=== PATIENT | female | born 2000 | race Two or more races ===

== ENCOUNTER → 2020-04-21 | Emergency (ER) | payer MEDICAID ==
[~2020-04-21] VITALS: Ht 160 cm; Wt 62.1 kg
[~2020-04-21] MED LIST: MORPHINE SULF INJ 2 MG/ML SYRINGE 1ML IV ONE; ONDANSETRON HCL 4 MG/2 ML VIAL IV ONE; SODIUM CHLORIDE 0.9% 1,000 ML IV ONE
[2020-04-21 09:22] LABS: Basophils # (auto) 0 10 ^3/uL (0-0.2); Basophils % (auto) 0.2 % (0.0-2.0); Eosinophils # (auto) 0 10 ^3/uL (0-0.8); Eosinophils % (auto) 0.2 % (0.0-7.0); Hematocrit 35.7 % (36.0-46.0); Hemoglobin 12.5 g/dL (12.2-16.2); Lymphocytes # (auto) 0.9 10 ^3/uL (0.4-5.4); Lymphocytes % (auto) 7.8 % (10.0-50.0); Mean Corpuscular Hemoglobin 29.9 pg (28.0-32.0); Mean Corpuscular Volume 85.6 fL (80.0-100.0); Monocytes # (auto) 0.4 10 ^3/uL (0-1.3); Monocytes % (auto) 3.5 % (0.0-12.0); Neutrophils # (auto) 10.6 10 ^3/uL (1.6-8.6); Neutrophils % (auto) 88.3 % (37.0-80.0); Nucleated Red Blood Cells % 0.1 %; Platelet Count (auto) 211 10^3/uL (140-450); Red Blood Cells 4.17 10^6/uL (4.0-5.20); Red Cell Distribution Width 14.8 % (11.8-14.3)
[2020-04-21 09:46] LABS: Calcium 8.9 mg/dL (8.5-10.1); Potassium 3.5 mmol/L (3.5-5.1)
[2020-04-21 09:49] LABS: BUN/Creatinine Ratio 10.7; Bilirubin, Total 0.7 mg/dL (0.2-1.0); Total Protein 7.3 g/dL (6.4-8.2)
[2020-04-21 10:26] LABS: Urine Bacteria MANY /hpf (None Seen); Urine Blood 1+ /uL (Negative); Urine Mucus FEW (None Seen); Urine Specific Gravity 1.013 (1.001-1.035); Urine WBC 357 /hpf (0 - 5); Urine WBC Clumps PRESENT /hpf (None Seen)
[2020-04-21 12:02] VITALS: BP 97/53
== END | disposition home or self-care (01) ==
LOC: ER 08:40
DX: O23.41 Unspecified infection of urinary tract in pregnancy, first trimester (principal); E86.0 Dehydration; Z3A.01 Less than 8 weeks gestation of pregnancy
CPT/HCPCS: 36415; 76805; 80053; 81001; 81025; 84702; 85025; 96361; 96374; 96375; 99284; J2270; J2405

== ENCOUNTER 2020-09-15 20:08 | Observation (INO) | payer MEDICAID ==
[~2020-09-15] VITALS: Ht 157.5 cm; Wt 68.0 kg
[2020-09-15] MEDS ORDERED: ACETAMINOPHEN 500 MG TAB PO ONE (21:36)
== END 2020-09-15 22:47 | disposition home or self-care (01) ==
LOC: LDRP 20:08
PROVIDERS: ADMIT Obstetrics & Gynecology; ATTEND Obstetrics & Gynecology
DX: O99.891 Other specified diseases and conditions complicating pregnancy (principal); M54.5 Low back pain; O34.63 Maternal care for abnormality of vagina, third trimester; N89.8 Other specified noninflammatory disorders of vagina; O26.893 Other specified pregnancy related conditions, third trimester; R11.0 Nausea; R06.02 Shortness of breath; Z3A.37 37 weeks gestation of pregnancy; Z79.899 Other long term (current) drug therapy
CPT/HCPCS: 59025; 81002; G0378

== ENCOUNTER 2020-09-19 01:19 | Inpatient (IN) | payer MEDICAID ==
[~2020-09-19] VITALS: Ht 157.5 cm; Wt 68.0 kg
[2020-09-19] MEDS ORDERED: LACT. RINGERS/OXYTOCIN 20UNITS 1,000 ML IV ONE (02:00)
[2020-09-19] MEDS ORDERED: TERBUTALINE SULFATE 1 MG/ML 1ML VIAL SC ONE (02:00)
[2020-09-19] MEDS ORDERED: PROMETHAZINE HCL 25 MG/ML 1ML IV PRN (02:00)
[2020-09-19] MEDS ORDERED: PHISODERM TOP SOLN 240ML BTL TOP PRN (02:00)
[2020-09-19] MEDS ORDERED: BUTORPHANOL TARTRATE 2 MG/1 ML VIAL IV PRN ×2 (02:00)
[2020-09-19] MEDS ORDERED: DERMOPLAST 60ML BOTTLE TOP PRN (02:00)
[2020-09-19] MEDS ORDERED: LIDOCAINE 2%HCL (LOCAL ANESTH.) INJ 20ML MDV IJ ONE (02:00)
[2020-09-19] MEDS ORDERED: WITCH HAZEL-GLYCERIN PAD TOP PRN (02:00)
[2020-09-19] MEDS ORDERED: LACT. RINGERS/OXYTOCIN 20UNITS 1,000 ML IV SCH (02:00)
[2020-09-19 02:32] LABS: Alcohol, Urine < 3.0 mg/dL (0-10); Amphetamine Screen, Urine NEGATIVE (NEGATIVE); Barbiturate Scree,Urine NEGATIVE (NEGATIVE); Benzodiazephine Screen, Urine NEGATIVE (NEGATIVE); Cannabinoid Screen, Urine NEGATIVE (NEGATIVE); Cocaine Screen, Urine NEGATIVE (NEGATIVE); Opiate Scree,Urine NEGATIVE (NEGATIVE); Phencyclidine Screen, Urine NEGATIVE (NEGATIVE)
[2020-09-19 02:36] LABS: Basophils # (auto) 0 10 ^3/uL (0-0.2); Basophils % (auto) 0.4 % (0.0-2.0); Eosinophils # (auto) 0.1 10 ^3/uL (0-0.8); Eosinophils % (auto) 0.8 % (0.0-7.0); Hematocrit 30.2 % (36.0-46.0); Hemoglobin 10.1 g/dL (12.2-16.2); Lymphocytes # (auto) 2.2 10 ^3/uL (0.4-5.4); Lymphocytes % (auto) 23.8 % (10.0-50.0); Mean Corpuscular Hemoglobin 27.5 pg (28.0-32.0); Mean Corpuscular Hgb Conc. 33.4 g/dL (32.0-36.0); Mean Corpuscular Volume 82.3 fL (80.0-100.0); Monocytes # (auto) 0.4 10 ^3/uL (0-1.3); Monocytes % (auto) 4.2 % (0.0-12.0); Neutrophils # (auto) 6.7 10 ^3/uL (1.6-8.6); Neutrophils % (auto) 70.8 % (37.0-80.0); Nucleated Red Blood Cells % 0.1 %; Platelet Count (auto) 266 10^3/uL (140-450); Red Blood Cells 3.67 10^6/uL (4.0-5.20); Red Cell Distribution Width 16.7 % (11.8-14.3); White Blood Cell 9.4 10^3/uL (4.4-10.8)
[2020-09-19 02:43] LABS: Urine Bacteria FEW /hpf (None Seen); Urine Blood Negative /uL (Negative); Urine Specific Gravity 1.006 (1.001-1.035); Urine WBC 2 /hpf (0 - 5)
[2020-09-19 02:53] LABS: Albumin 2.5 g/dL (3.4-5.0); Calcium 8.1 mg/dL (8.5-10.1); Potassium 3.7 mmol/L (3.5-5.1)
[2020-09-19 02:54] LABS: INR 0.95 (0.9-1.15); Partial Thromboplastin Time 27.3 sec (23.0-31.2)
[2020-09-19 02:55] LABS: BUN/Creatinine Ratio 12.3
[2020-09-19 02:58] LABS: Bilirubin, Total 0.4 mg/dL (0.2-1.0); Total Protein 6.7 g/dL (6.4-8.2)
[2020-09-19] MEDS ORDERED: METHYLERGONOVINE MALEATE 0.2 MG/ML AMP IM ONE (05:00)
[2020-09-19] MEDS ORDERED: miSOPROStol 50 MCG per PRE-CUT 1/2 TAB PO PRN (06:00)
[2020-09-19] MEDS: LACTATED RINGER'S 1,000 ML IV SCH ×2 (06:35→10:00)
[2020-09-19] MEDS ORDERED: LACTATED RINGER'S 1,000 ML IV ONE (08:30)
[2020-09-19] MEDS ORDERED: ePHEDrine SULFATE 50 MG/ML AMP IV ONE (08:30)
[2020-09-19] MEDS ORDERED: ROPIVACAINE HCL 200 ML EPI SCH (08:30)
[2020-09-19] MEDS ORDERED: ROPIVACAINE HCL 400mg/200ml BAG (2mg/ml) ONE (08:37)
[2020-09-19] MEDS ORDERED: ePHEDrine SULFATE 50 MG/ML AMP ONE (08:38)
[2020-09-19] MEDS: IBUPROFEN 600 MG TAB PO PRN (13:47)
[2020-09-19 15:35] VITALS: BP 105/62
[2020-09-19 19:00] VITALS: BP 109/60
[2020-09-19 23:25] VITALS: BP 101/65
[2020-09-20] MEDS: IBUPROFEN 600 MG TAB PO PRN (00:30)
[2020-09-20 05:06] LABS: RPR Non Reactive (Non Reactive)
[2020-09-20 07:15] VITALS: BP 107/58
[2020-09-20 11:26] VITALS: BP 115/75
== END 2020-09-20 13:05 | disposition home or self-care (01) | DRG 560 ==
LOC: LDRP 01:19 → OBSVTOIN 01:19 → LDRP 02:18
PROVIDERS: ADMIT Obstetrics & Gynecology; ATTEND Obstetrics & Gynecology
PROC: 10E0XZZ Delivery of Products of Conception, External Approach (ICD-10-PCS; principal; 2020-09-19)
PROC: 3E0R3BZ Introduction of Anesthetic Agent into Spinal Canal, Percutaneous Approach (ICD-10-PCS; 2020-09-19)
PROC: 00HU33Z Insertion of Infusion Device into Spinal Canal, Percutaneous Approach (ICD-10-PCS; 2020-09-19)
PROC: 0UQGXZZ Repair Vagina, External Approach (ICD-10-PCS; 2020-09-19)
DX: O69.81X0 Labor and delivery complicated by cord around neck, without compression, not applicable or unspecified (principal); O71.4 Obstetric high vaginal laceration alone; Z3A.38 38 weeks gestation of pregnancy; Z37.0 Single live birth; Z20.822 Contact with and (suspected) exposure to COVID-19
CPT/HCPCS: 36415; 59025; 59409; 80053; 80307; 81001; 81002; 84112; 85025; 85610; 85730; 86592; 86850; 86900; 86901; 87426; 94760; 96360; 96361; 96365; 96366; G0378; J2590

== ENCOUNTER 2025-05-11 20:17 | Emergency (ER) | payer MEDICAID ==
[~2025-05-11] VITALS: Ht 157.5 cm; Wt 72.1 kg
--- NOTE | 2025-05-11 21:09 | ED.PDOC ---
History of Present Illness HPI Comments 25-year-old presented to the ER with a chief complaint of nausea and vomiting for the past 2 days. Patient reports that she had a positive urinary test yesterday, and that this is an unplanned apparently. For the past 2 days, she has been unable to keep solids or liquid food down, has been throwing up more than 5 episodes in a day, nonbloody, but denies chest pain/shortness of breaths/diarrhea or constipation at this time. Denies fever or chills. Does not report was using drinking alcohol and smoking, and not using any multivitamins or folic acid supplementation. Past medical history: Denies Home medication: Denies Patient seen and examined in ER. Vitally stable, normotensive, not tachycardia. Abdomen soft, nontender. Chief Complaint: Nausea/Vomiting Time Seen by MD: 20:32 Primary Care Provider: jannie Reviewed Notes: Nurses Notes Allergies: Coded Allergies: NO KNOWN ALLERGIES (Unverified , 04/21/20) Home Meds No Active Prescriptions or Reported Meds Information Source: Patient Mode of Arrival: Ambulatory Past Medical History PAST MEDICAL HISTORY: Denies Surgical History: Denies all surgeries LIVE IN COMPANION History: No Pertinent LIVE IN COMPANION History Social History Smoker: Non-Smoker Alcohol: Denies ETOH Use Drugs: Denies Drug Use Constitutional: denies: chills, diaphoresis, fatigue, fever, malaise, sweats, weakness, others EENTM: denies: blurred vision, double vision, ear bleeding, ear discharge, ear drainage, ear pain, ear ringing, eye pain, eye redness, hearing loss, mouth pain, mouth swelling, nasal discharge, nose bleeding, nose congestion, nose pain, photophobia, tearing, throat pain, throat swelling, voice changes, others Respiratory: denies: cough, hemoptysis, orthopnea, SOB at rest, shortness of breath, SOB with excertion, stridor, wheezing, others Cardiovascular: denies: chest pain, dizzy spells, diaphoresis, Dyspnea on exertion, edema, irregular heart beat, left arm pain, lightheadedness, palpitations, PND, syncope, others Gastrointestinal: reports: nausea, poor fluid intake, vomiting Genitourinary: denies: abnormal vagina bleeding, burning, dyspareunia, dysuria, flank pain, frequency, hematuria, incontinence, pain, , vagina discharge, urgency, others Neurological: denies: dizziness, fainting, headache, left sided numbness, left sided weakness, numbness, paresthesia, pre-existing deficit, right sided numbness, right sided weakness, seizure, speech problems, tingling, tremors, weakness, others Musculoskeletal: denies: back pain, gout, joint pain, joint swelling, muscle pain, muscle stiffness, neck pain, others Integumetry: denies: bruises, change in color, change in hair/nails, dryness, laceration, lesions, lumps, rash, wounds, others Allergic/Immunocompromised: denies: Difficulty Healing, Frequent Infections, Hives, Itching, others Hematologic/Lymphatic: denies: anemia, blood clots, easy bleeding, easy bruis ing, swollen glands, others Endocrine: denies: excessive hunger, excessive sweating, excessive thirst, exc essive urination, flushing, intolerance to cold, intolerance to heat, unexplained weight gain, unexplained weight loss, others Psychiatric: denies: anxiety, bipolar disorder, depression, hopeless, panic disorder, schizophrenia, sleepless, suicidal, others Physical Exam General Appearance: No Apparent Distress, Normal HEENT: NOT DONE Neck: NOT DONE Respiratory: No Accessory Muscle Use, No Respiratory Distress, Normal Breath Sounds Cardiovascular: No Edema, Regular Rate/Rhythm Breast Exam: Deferred Gastrointestinal: No Organomegaly, Non Tender, No Pulsatile Mass, Normal Bowel Sounds, Soft Genitalia: Deferred Pelvic: Deferred Rectal: Deferred Extremities: No calf tenderness, Normal capillary refill, Normal inspection, Normal range of motion, Non-tender, No pedal edema Neurologic: NOT DONE Cerebellar Function: NOT DONE Reflexes: NOT DONE Skin: NOT DONE Lymphatic: NOT DONE Was a procedure done? Was a procedure done?: No Differential Dx Considerations may include: Hyperemesis gravidarum/gastroenteritis/UTI/food poisoning X-Ray, Labs, Meds, VS Vital Signs Date Time Temp Pulse Resp B/P (MAP) Pulse Ox O2 Delivery O2 Flow Rate FiO2 05/12/25 00:10 98.3 64 14 113/84 (94) 99 98.3 05/11/25 21:54 67 16 97 Room Air* 0 21 05/11/25 21:53 98.4 64 18 131/65 (87) 97 98.4 05/11/25 20:20 97.7 75 20 135/84 98 97.7 Lab Test 05/11/25 21:42 Range/Units White Blood Count 13.5 H 4.4-10.8 10^3/uL Red Blood Count 4.66 4.0-5.20 10^6/uL Hemoglobin 14.4 12.2-16.2 g/dL Hematocrit 41.6 36.0-46.0 % Mean Corpuscular Volume 89.2 80.0-100.0 fL Mean Corpuscular Hemoglobin 30.9 28.0-32.0 pg Mean Corpuscular Hemoglobin Concent 34.7 32.0-36.0 g/dL Red Cell Distribution Width 14.0 11.8-14.3 % Platelet Count 312 140-450 10^3/uL Mean Platelet Volume 8.6 6.9-10.8 fL Neutrophils (%) (Auto) 79.0 37.0-80.0 % Lymphocytes (%) (Auto) 15.7 10.0-50.0 % Monocytes (%) (Auto) 4.6 0.0-12.0 % Eosinophils (%) (Auto) 0.3 0.0-7.0 % Basophils (%) (Auto) 0.4 0.0-2.0 % Neutrophils # (Auto) 10.7 H 1.6-8.6 10 ^3/uL Lymphocytes # (Auto) 2.1 0.4-5.4 10 ^3/uL Monocytes # (Auto) 0.6 0-1.3 10 ^3/uL Eosinophils # (Auto) 0 0-0.8 10 ^3/uL Basophils # (Auto) 0.1 0-0.2 10 ^3/uL Nucleated Red Blood Cells 0.1 % Sodium Level 140 136-145 mmol/L Potassium Level 3.6 3.5-5.1 mmol/L Chloride Level 102 98-107 mmol/L Carbon Dioxide Level 26 20-31 mmol/L Anion Gap 12 5-15 Blood Urea Nitrogen 10 9-23 mg/dL Creatinine 0.78 0.550-1.02 mg/dL Glomerular Filtration Rate Calc 107 >90 mL/min BUN/Creatinine Ratio 12.8 10.0-20.0 Serum Glucose 92 74-106 mg/dL Calcium Level 9.8 8.7-10.4 mg/dL Beta HCG, Quantitative 34472.4 H 1.5-4.2 mIU/mL Current Medications Medications (Trade) Dose Ordered Sig/Bernie Route Start Time Stop Time Status Last Admin Pyridoxine HCl (Vitamin B-6 Tablet) 25 mg ONCE ONCE PO 05/11/25 21:15 05/11/25 21:17 DC 05/12/25 00:12 Thiamine HCl 100 mg ONCE ONCE IM 05/11/25 23:30 05/11/25 23:32 DC 05/12/25 00:14 X-Ray, Labs, Meds, VS Comment OBSTETRIC ULTRASOUND PRIOR TO 14 WEEKS CLINICAL INDICATION: N/V, positive urine TECHNIQUE: Multiple grayscale ultrasound images were obtained of the pelvis via transabdominal and transvaginal approach for obstetric evaluation. Limited color Doppler and spectral Doppler acquisitions were also obtained. COMPARISON: US OB TRANS VAGINAL US on DOS: 05/11/25 FINDINGS: Uterus: 9.4 x 7.3 x 6.0 cm. There is a single intrauterine gestational sac is visualized. A pole is visualized measuring 0.21 cm compatible with an estimated gestational age of 5 weeks, 5 days. cardiac activity is present with heart rate of 115 beats per minute. A normal yolk sac is present. Right adnexa: right ovary 1.2 x 1.8 x 2.3 cm. Normal arterial blood flow in the ovary. No right adnexal mass seen. Left adnexa: left ovary 2.1 x 1.0 x 1.8 cm. Normal arterial blood flow in the ovary. No left adnexal mass seen. Left complex cystic lesion likely a hemorrhagic cyst measuring 1.6 cm. Other: None IMPRESSION: 1. Single living intrauterine with an estimated gestational age of 5 weeks, 5 days, corresponding to an estimated date of delivery of 01/06/2026 Images Reviewed?: Images reviewed and evaluated by me Time of 1ST Reevaluation: 01:00 Reevaluation 1ST: Improved (Nausea vomiting improved) Consultation: PCP, nutrition tech Patient Education/Counseling: Diagnosis, Treatment Family Education/Counseling: Diagnosis, Treatment SEPSIS Sepsis Screen Date sepsis recognized/suspect: May 11, 2025 Time Sepsis recognized/suspect: 2024 Recent Procedure: No On Antibiotic Therapy: No Respiratory Rate >20: No Heart Rate >90: No Temp<36 C (96.8 F) or >38.3 C: No SBP <90 or MAP <65 mmHG: No New Acute Mental Status Change: No Is the patient on CPAP, BIPAP,: No Physician Orders Ob Ultrasound Comp Less 14wks (05/11/25 21:02) Ob Trans Vaginal Us (05/11/25 23:31) Folic Acid Tablet (05/12/25 00:45) Vital Signs Date Time Temp Pulse Resp B/P (MAP) Pulse Ox O2 Delivery O2 Flow Rate FiO2 05/12/25 00:10 98.3 64 14 113/84 (94) 99 98.3 05/11/25 21:54 67 16 97 Room Air* 0 21 05/11/25 21:53 98.4 64 18 131/65 (87) 97 98.4 05/11/25 20:20 97.7 75 20 135/84 98 97.7 Laboratory Tests Test 05/11/25 21:42 White Blood Count 13.5 10^3/uL (4.4-10.8) H Medications Medications Dose Ordered Sig/Bernie Route Start Time Stop Time Status Last Admin Dose Admin Pyridoxine HCl 25 mg ONCE ONCE PO 05/11/25 21:15 05/11/25 21:17 DC 05/12/25 00:12 Thiamine HCl 100 mg ONCE ONCE IM 05/11/25 23:30 05/11/25 23:32 DC 05/12/25 00:14 Departure 1 Departure Time of Disposition: 02:00 Impression: Primary Impression: Additional Impression: Hyperemesis gravidarum Disposition: 01 HOME / SELF CARE / HOMELESS Condition: Fair e-Prescriptions No Active Prescriptions or Reported Meds Comments Follow up with primary care physician as an denies 3 days Scheduled and human services care specialist appointment within 1 week to start care Continue folic acid supplementation throughout , 4 mg tablet daily Continue multivitamin 1 tablet daily Continue pyridoxine supplementation 25 mg every 8 hour as needed for nausea and vomiting Avoid alcohol, smoking or recreational drugs Only use medications approved by her human services care specialist-many of the [id number] medications are unsafe in 7 Eat balanced diet including foods, vegetables, whole grains, lean protein Stay well doipjnwa-9-5 glasses of water daily Avoid undergoing meat, raw fish, sushi, unpasteurized cheese or milk Limit caffeine-no more than 1 small cup of coffee or tea daily Please return to the ER in case you experienced vaginal bleeding or passing clots, lower abdominal pain or pelvic pain, dizziness, fainting, severe nausea or vomiting, fever, any new or worsening symptoms Attached is the ultrasound report OBSTETRIC ULTRASOUND PRIOR TO 14 WEEKS CLINICAL INDICATION: N/V, positive urine TECHNIQUE: Multiple grayscale ultrasound images were obtained of the pelvis via transabdominal and transvaginal approach for obstetric evaluation. Limited color Doppler and spectral Doppler acquisitions were also obtained. COMPARISON: US OB TRANS VAGINAL US on DOS: 05/11/25 FINDINGS: Uterus: 9.4 x 7.3 x 6.0 cm. There is a single intrauterine gestational sac is visualized. A pole is visualized measuring 0.21 cm compatible with an estimated gestational age of 5 weeks, 5 days. cardiac activity is present with heart rate of 115 beats per minute. A normal yolk sac is present. Right adnexa: right ovary 1.2 x 1.8 x 2.3 cm. Normal arterial blood flow in the ovary. No right adnexal mass seen. Left adnexa: left ovary 2.1 x 1.0 x 1.8 cm. Normal arterial blood flow in the ovary. No left adnexal mass seen. Left complex cystic lesion likely a hemorrhagic cyst measuring 1.6 cm. Other: None IMPRESSION: 1. Single living intrauterine with an estimated gestational age of 5 weeks, 5 days, corresponding to an estimated date of delivery of 01/06/2026 Critical Care Note Critical Care Time?: No Stability Stability form required: NATHALIE Abdullahi RESIDENT May 11, 2025 21:09
[2025-05-11 21:54] VITALS: PULSE 67; RESP 16; O2SAT 97
[2025-05-11 22:06] LABS: Hematocrit 41.6 % (36.0-46.0); Hemoglobin 14.4 g/dL (12.2-16.2); Mean Corpuscular Hemoglobin 30.9 pg (28.0-32.0); Mean Corpuscular Volume 89.2 fL (80.0-100.0); Nucleated Red Blood Cells % 0.1 %
[2025-05-11 22:08] LABS: Chloride 102 mmol/L (98-107); Potassium 3.6 mmol/L (3.5-5.1); Sodium 140 mmol/L (136-145)
[2025-05-11 22:09] LABS: Anion Gap 12 (5-15); Calcium 9.8 mg/dL (8.7-10.4); Carbon Dioxide 26 mmol/L (20-31)
[2025-05-11 22:14] LABS: BUN/Creatinine Ratio 12.8 (10.0-20.0); Blood Urea Nitrogen 10 mg/dL (9-23); Glucose 92 mg/dL (74-106)
--- NOTE | 2025-05-11 23:47 | DVH ---
OBSTETRIC ULTRASOUND PRIOR TO 14 WEEKS CLINICAL INDICATION: N/V, positive urine TECHNIQUE: Multiple grayscale ultrasound images were obtained of the pelvis via transabdominal and tr ansvaginal approach for obstetric evaluation. Limited color Doppler and spectral Doppler acquisitions were also obtained. COMPARISON: US OB TRANS VAGINAL US on DOS: 05/11/25 FINDINGS: Uterus: 9.4 x 7.3 x 6.0 cm. There is a single intrauterine gestational sac is visualized. A sancho e is visualized measuring 0.21 cm compatible with an estimated gestational age of 5 weeks, 5 days. F etal cardiac activity is present with heart rate of 115 beats per minute. A normal yolk sac is prese nt. Right adnexa: right ovary 1.2 x 1.8 x 2.3 cm. Normal arterial blood flow in the ovary. No right adnex al mass seen. Left adnexa: left ovary 2.1 x 1.0 x 1.8 cm. Normal arterial blood flow in the ovary. No left adnexal mass seen. Left complex cystic lesion likely a hemorrhagic cyst measuring 1.6 cm. Other: None IMPRESSION: 1. Single living intrauterine with an estimated gestational age of 5 weeks, 5 days, corre sponding to an estimated date of delivery of 01/06/2026
[2025-05-12 00:10] VITALS: BP 113/84; PULSE 64; RESP 14; TEMP 98.3; O2SAT 99
[2025-05-12] MEDS: PYRIDOXINE HCL 50 MG TAB PO ONE (00:12)
[2025-05-12] MEDS: THIAMINE 100mg/ml INJ (200mg/2ml VIAL) IM ONE (00:14)
[2025-05-12] MEDS: FOLIC ACID 1 MG TAB PO ONE (00:58)
== END 2025-05-12 01:02 | disposition home or self-care (01) ==
LOC: ER 20:17
DX: Z34.90 Encounter for supervision of normal pregnancy, unspecified, unspecified trimester (principal); Z3A.01 Less than 8 weeks gestation of pregnancy; Z79.899 Other long term (current) drug therapy
CPT/HCPCS: 36415; 76801; 76817; 80048; 84702; 85025; 96372; 99285; J3411